=== PATIENT | male | born 1950 | race Caucasian/White ===

== ENCOUNTER 2020-09-06 11:09 | Outpatient (REF) | payer MEDICARE, SELFPAY ==
--- NOTE | 2020-09-06 11:15 | CT_ITS ---
EXAMINATION: CT CHEST WITHOUT CONTRAST CLINICAL INFORMATION: Follow-up pulmonary nodule COMPARISON: Previous chest CT August 2019 TECHNIQUE: Multidetector volumetric CT imaging of the chest was done. Axial MIP volume rendering provided. Sagittal and coronal reformatted images were obtained. This CT examination was performed using dose optimization techniques as appropriate, variously including the following: *Automated exposure control *Adjustment of mA and/or kV according to patient size (this includes techniques or standardized protocols for targeted exams where dose is matched to indication/reason for exam; i.e. extremities or head) *Use of iterative reconstruction technique DLP: 295 mGy-cm FINDINGS: LUNGS: The small pulmonary nodules are stable. Largest pulmonary nodule is a 3 mm left upper lobe nodule axial image 225 series 5. No new pulmonary nodules are seen. There is question of increased peripheral interstitial markings at the lung bases. Appears more prominent than seen on previous exam. No evidence of emphysema or bronchiectasis is seen. No endobronchial or endotracheal lesion is seen. MEDIASTINUM: The heart is slightly enlarged. There is a small pericardial effusion. There is aortic valve calcification. There is no significant coronary artery calcification. The thoracic aorta is normal in caliber. There are small mediastinal lymph nodes that are stable. PLEURA: There is no pleural effusion. There are areas of bilateral pleural thickening, adjacent to the bilateral upper lobes on the right axial image 134 and 173 series 5 and on the left measuring 178 series 5 and axial image 281 series 5. This appears stable. There is increased pleural thickening or nodularity adjacent to the medial left lower lobe, for example axial image 308 series 5 and posterior right lower lobe, for example axial image 320 series 5. AXILLA: No chest wall mass or enlarged axillary lymph nodes are seen. There is question of increased attenuation of the subcutaneous fat edema. UPPER ABDOMEN: There is a small stone in the upper pole of the left kidney. The gallbladder has been removed. OSSEOUS STRUCTURES: There are degenerative changes of the thoracic spine. There are postsurgical changes to the visualized lower cervical spine. IMPRESSION: Stable small pulmonary nodules. Interval increase in nodular pleural thickening adjacent to the bilateral lower lobes and increased peripheral interstitial markings at the lung bases questionable for early or mild interstitial lung disease. Enlarged heart, small pericardial effusion and aortic valve calcification. Diffuse increased attenuation in the subcutaneous fat questionable for mild edema/anasarca. Clinical correlation recommended. Small left renal stone.
== END 2020-09-06 11:10 | disposition home or self-care (01) ==
LOC: HO.CT 11:09
PROVIDERS: Visit Provider Internal Medicine Pulmonary Disease
DX: R91.8 Other nonspecific abnormal finding of lung field (principal)
CPT/HCPCS: 71250

== ENCOUNTER → 2020-09-13 11:38 | Outpatient (BNVA) | payer MEDICARE, SELFPAY | PROVIDERS: PCP Internal Medicine; Visit Provider Internal Medicine Pulmonary Disease | DX: J45.30 Mild persistent asthma, uncomplicated (principal); R91.8 Other nonspecific abnormal finding of lung field; Z87.891 Personal history of nicotine dependence | CPT/HCPCS: 99214 ==